=== PATIENT | female | born 1985 | race African-American/Black ===

== ENCOUNTER 2018-12-21 19:45 | Emergency (ER) | payer SELFPAY ==
[~2018-12-21] VITALS: Ht 154.9 cm; Wt 65.2 kg
[~2018-12-21 19:45] MED LIST: HYDR-4011 PO; NAPR-985 PO
[2018-12-21 19:53] VITALS: BP 135/79; PULSE 90; RESP 19; Ht 154.9 cm; Wt 65.2 kg
[2018-12-21] MEDS ORDERED: HYDROCODONE/APAP (5/325) TAB PO ONE (20:30)
--- NOTE | 2018-12-22 00:24 | ERD ---
ER Documentation Chief Complaint Chief Complaint "I cracked my tooth yesterday" right upper dental pain, 10/10 pain scale. HPI 33-year-old female presenting to the emergency department complaining of right upper dental pain for the past 1 day. She states she bent into a lollipop and cracked her tooth. Pain is rated 10/10 in severity and constant. She took [id number] medication without significant relief. She denies any fevers, chills, or other symptoms at this time. ROS All systems reviewed and are negative except as per history of present illness. Medications Home Meds Active Scripts Hydrocodone/Acetaminophen ([place] 5-325 Tablet) 1 Each Tablet, 1 TAB PO Q6H PRN for PAIN, #7 TAB Prov:ANIYAH BECERRA PA-C 12/21/18 Naproxen* (Naprosyn*) 500 Mg Tablet, 500 MG PO BID PRN for PAIN AND/OR INFLAMMATION, #30 TAB Prov:ANIYAH BECERRA PA-C 12/21/18 Allergies Allergies: Coded Allergies: No Known Allergy (Unverified , 12/21/18) PMhx/Soc Medical and Surgical Hx: pt denies Medical Hx, pt denies Surgical Hx Hx Alcohol Use: No Hx Substance Use: No Hx Tobacco Use: No FmHx Family History: No diabetes Physical Exam Vitals Vital Signs Date Temp Pulse Resp B/P (MAP) Pulse Ox O2 O2 Flow FiO2 Time Delivery Rate 12/21/18 96.8 90 19 135/79 100 19:53 (97) Physical Exam Const: No acute distress Head: Atraumatic Eyes: Normal Conjunctiva ENT: Normal External Ears, Nose and Mouth. There is a tooth fracture to the right upper molar region. No obvious dental abscess noted. Neck: Full range of motion. No meningismus. Resp: No respiratory distress. Skin: No petechiae or rashes Ext: No cyanosis, or edema Neur: Awake and alert Psych: Normal Mood and Affect Results 24 hrs Current Medications Medications Dose Sig/Garry Start Time Status Last (Trade) Ordered Route PRN Stop Time Admin Dose Reason Admin 1 tab ONCE ONCE 12/21/18 DC 12/21/18 Acetaminophen PO 20:30 20:07 / 12/21/18 20:30 Hydrocodone Bitart ([place] (5/325)) Procedures/MDM 33-year-old female presenting with signs and symptoms consistent with tooth fracture. Patient was administered [place] in the department. She is improved prior to discharge. No evidence of drainable dental abscess, Lui's angina, meningitis, deep space infection, or other emergencies. Patient will be given short course of [place] for pain at home. Cures report was consulted before prescribing narcotics. No evidence of drug-seeking behavior or doctor shopping. Patient advised to return immediately for any new or worsening or concerning symptoms and have 24 to 48-hour follow-up with her dentist. She understands and agrees with the diagnosis and plan and need for follow-up and return precautions. Departure Diagnosis: Primary Impression: Tooth fracture Condition: Fair Patient Instructions: Dental Trauma Referrals: [facility] YOU HAVE RECEIVED A MEDICAL SCREENING EXAM AND THE RESULTS INDICATE THAT YOU DO NOT HAVE A CONDITION THAT REQUIRES URGENT TREATMENT IN THE EMERGENCY DEPARTMENT. FURTHER EVALUATION AND TREATMENT OF YOUR CONDITION CAN WAIT UNTIL YOU ARE SEEN IN YOUR DOCTORS OFFICE WITHIN THE NEXT 1-2 DAYS. IT IS YOUR RESPONSIBILITY TO MAKE AN APPOINTMENT FOR FOLOW-UP CARE. IF YOU HAVE A PRIMARY DOCTOR --you should call your primary doctor and schedule an appointment IF YOU DO NOT HAVE A PRIMARY DOCTOR YOU CAN CALL OUR PHYSICIAN REFERRAL HOTLINE AT IF YOU CAN NOT AFFORD TO SEE A PHYSICIAN YOU CAN CHOSE FROM THE FOLLOWING [facility] [address] [facility]. [facility] [address] [facility]. [facility] [address] [facility] [address] [facility] [facility] [address] [facility]. [facility]. [address] [facility] DENTIST ([facility] walk in clinic) Additional Instructions: SPECIALIST: YOU HAVE A MEDICAL CONDITION WHICH REQUIRES YOU TO SEE A SPECIALIST WITHIN THE NEXT 1-2 DAYS. PLEASE FOLLOW UP WITH YOUR PRIMARY PHYSICIAN FOR REFFERAL.IF YOU DO NOT HAVE A PRIMARY CARE PHYSICIAN AND/OR YOU CAN NOT AFFORD TO SEE A PHYSICIAN THE FOLLOWING RESOURCES HAVE BEEN SUPPLIED TO YOU. IT IS YOUR RESPONSIBILITY TO BE SEEN BY THE SPECIALIST: DENTIST ANIYAH BECERRA PA-C Dec 22, 2018 00:24
== END 2018-12-21 20:25 | disposition home or self-care (01) ==
LOC: FTE 19:45
DX: S02.5XXA Fracture of tooth (traumatic), initial encounter for closed fracture (principal); X58.XXXA Exposure to other specified factors, initial encounter; Y92.9 Unspecified place or not applicable
CPT/HCPCS: 99283